=== PATIENT | male | born 1940 | race Caucasian/White ===

== ENCOUNTER 2019-12-25 11:17 | Outpatient (CLI) | payer MEDICARE ==
--- NOTE | 2019-12-25 16:14 | CT ---
CT CERVICAL SPINE WITHOUT CONTRAST: History: Pain in the back of the neck that radiates to the right and left. Chair fell and hit him in the back of the head. Technique: Multiple contiguous axial images were obtained in a CT of the cervical spine without contr ast. Sagittal and coronal reformats were performed. FINDINGS: Mild degenerative changes are seen throughout the cervical spine. Vertebral bodies demonstrate normal height and alignment without fracture or subluxation. No prevertebral soft tissue swelling is seen. The posterior facets are well aligned. Normal alignment of skull base with the cervical spine is seen . There are small hypodensities in the right thyroid lobe. No cervical adenopathy is seen. The lung api magaly are unremarkable. IMPRESSION: Degenerative changes of the cervical spine without acute osseous abnormality. POS: EAA
== END 2019-12-25 11:18 | disposition home or self-care (01) ==
LOC: SCSCT 11:17
PROVIDERS: ATTEND Family Medicine
DX: M47.812 Spondylosis without myelopathy or radiculopathy, cervical region (principal)
CPT/HCPCS: 72125